=== PATIENT | female | born 1995 | race African-American/Black ===

== ENCOUNTER 2019-01-02 15:22 | Emergency (ER) | payer OTHER ==
[~2019-01-02] VITALS: Ht 175.3 cm; Wt 54.4 kg
[2019-01-02] MEDS ORDERED: TOBRADEX EYE DRO5 ML OPHTHALMIC (16:05)
== END 2019-01-02 16:00 | disposition home or self-care (01) ==
LOC: ER 15:22
DX: H10.9 Unspecified conjunctivitis (principal)

== ENCOUNTER 2019-10-25 18:41 | Emergency (ER) | payer OTHER ==
[~2019-10-25] VITALS: Ht 175.3 cm; Wt 54.4 kg
[~2019-10-25 18:41] MED LIST: TOBRADEX EYE DRO5 ML OPHTHALMIC
[2019-10-25 19:01] LABS: URINE BILIRUBIN NEGATIVE (Negative); URINE BLOOD NEGATIVE (Negative); URINE CLARITY CLEAR; URINE GLUCOSE-RANDOM* NEGATIVE (Negative); URINE KETONES NEGATIVE (Negative); URINE LEUKOCYTES-REFLEX NEGATIVE (Negative); URINE NITRITE-REFLEX NEGATIVE (Negative); URINE PROTEIN (DIPSTICK) NEGATIVE (Negative)
[2019-10-25 19:05] LABS: URINE COLOR YELLOW
[2019-10-25 20:07] VITALS: BP 96/62
== END 2019-10-25 20:09 | disposition still patient (30) ==
LOC: ER 18:41
PROVIDERS: Nurse Practitioner Family
DX: N76.0 Acute vaginitis (principal)

== ENCOUNTER 2019-10-31 20:23 | Emergency (ER) | payer OTHER ==
[~2019-10-31] VITALS: Ht 175.3 cm; Wt 54.4 kg
[2019-10-31 20:51] LABS: URINE BILIRUBIN NEGATIVE (Negative); URINE BLOOD NEGATIVE (Negative); URINE CLARITY CLEAR; URINE COLOR YELLOW; URINE GLUCOSE-RANDOM* NEGATIVE (Negative); URINE KETONES 1+ (Negative); URINE LEUKOCYTES-REFLEX 2+ (Negative); URINE NITRITE-REFLEX NEGATIVE (Negative); URINE PROTEIN (DIPSTICK) NEGATIVE (Negative); URINE SPECIFIC GRAVITY 1.025 (1.005-1.035); URINE UROBILINOGEN 0.2 E.U./dl (0.2-1.0)
[2019-10-31 21:00] LABS: SQUAMOUS 4-10 Moderate /LPF (0-3)
[2019-10-31 21:01] LABS: CASTS None Seen /LPF (None Seen); CRYSTALS None Seen /LPF (None Seen); URINE RBC None Seen /HPF (0-2); URINE WBC-REFLEX 6-15 Few /HPF (0-5); YEAST-REFLEX Present (None Seen)
[2019-10-31 21:33] VITALS: BP 108/76
== END 2019-10-31 21:35 | disposition home or self-care (01) ==
LOC: ER 20:23
PROVIDERS: Student in an Organized Health Care Education/Training Program
DX: B37.3 Candidiasis of vulva and vagina (principal)